=== PATIENT | male | born 1980 | race Two or more races ===

== ENCOUNTER 2023-12-31 13:42 | Emergency (ER) | payer MEDICAID ==
[~2023-12-31] VITALS: Ht 162.6 cm; Wt 52.3 kg
[2023-12-31 13:50] VITALS: BP 117/78; PULSE 60; RESP 14; TEMP 97.5
[2023-12-31 15:05] LABS: BASOPHILS % (AUTO) 0.2 % (0.0-2.0); EOSINOPHILS % (AUTO) 0.1 % (1.0-6.0); HEMATOCRIT 44.4 % (41-53); HEMOGLOBIN 14.5 g/dL (13.5-17.5); LYMPHOCYTES # (AUTO) 0.7 K/uL (1.0-4.8); MEAN CORPUSCULAR HEMOGLOBIN 28.3 pg (26.0-34.0); MEAN CORPUSCULAR HGB CONC 32.8 G/dL (31.0-37.0); MEAN CORPUSCULAR VOLUME 86 fL (80-100); MONOCYTES # (AUTO) 0.6 K/uL (0.1-1.0); MONOCYTES % (AUTO) 3.5 % (2.0-9.0); NEUTROPHILS # (AUTO) 16.3 K/uL (1.8-7.7); PLATELET COUNT (AUTO) 229 K/uL (150-450); RED BLOOD CELL COUNT(AUTO) 5.14 MIL/uL (4.50-5.90); RED CELL DISTRIBUTION WIDTH 12.7 % (11.5-14.5); WHITE BLOOD COUNT (AUTO) 17.7 K/uL (4.5-11.0)
[2023-12-31 15:07] LABS: NEUTROPHILS % (AUTO) 92.2 % (40.0-70.0)
[2023-12-31 15:14] LABS: ANION GAP 12 mmol/L (8-16); CALCIUM, TOTAL 9.5 mg/dL (8.8-10.5); CARBON DIOXIDE 28 mmol/L (22-29); CHLORIDE 96 mmol/L (98-107); CREATININE 1.24 mg/dL (0.60-1.30); GLOMERULAR FILTR. RATE CALC > 60 mL/min (>60); GLUCOSE,RANDOM 123 mg/dL (70-110); POTASSIUM 3.6 mmol/L (3.5-5.1); SODIUM SERUM 136 mmol/L (136-145); UREA NITROGEN, BLOOD 14 mg/dL (7-18)
[2023-12-31 15:15] LABS: LIPASE 24 U/L (16-77)
[2023-12-31 15:25] LABS: PLATELET MORPHOLOGY COMMENT LARGE PLTS PRESENT; RBC MORPHOLOGY COMMENT NORMAL RBC MORPH
[2023-12-31] MEDS: ONDANSETRON HCL 4 MG/2 ML VIAL IVP ONE (15:37)
[2023-12-31] MEDS: KETOROLAC TROMETHAMINE 30 MG/ML VIAL IVP ONE (15:38)
[2023-12-31] MEDS: SODIUM CHLORIDE 0.9% 2,000 ML IV ONE (15:38)
[2023-12-31] MEDS: HYDROmorphone HCL 2 MG/ML SYRINGE IVP ONE (16:15)
[2023-12-31 17:26] LABS: APPEARANCE,URINE CLEAR (CLEAR); BILIRUBIN,URINE NEGATIVE (NEGATIVE); COLOR,URINE LIGHT YELLOW (YELLOW); GLUCOSE, URINE (UA) NEGATIVE (NEGATIVE); KETONES,URINE 40-60 mg/dL (NEGATIVE); LEUKOCYTE ESTERASE ,URINE NEGATIVE (NEGATIVE); NITRATE,URINE NEGATIVE (NEGATIVE); OCCULT BLOOD,URINE NEGATIVE (NEGATIVE); PROTEIN,URINE NEGATIVE (NEGATIVE); SPECIFIC GRAVITIY, URINE 1.014 (1.003-1.030); UROBILINOGEN,URINE <=1.0 mg/dL (<=1.0)
[2023-12-31] MEDS ORDERED: IBUP-1554 PO (18:15)
[2023-12-31] MEDS ORDERED: TAMS0.4C94 PO (18:15)
[2023-12-31] MEDS ORDERED: HYDR-4062 PO (18:15)
[2023-12-31] MEDS: HYDROCODONE/ACETAMINOPHEN 5-325 MG TABLET PO ONE (18:18)
== END 2023-12-31 18:36 | disposition home or self-care (01) ==
LOC: EMS 13:43
DX: N20.9 Urinary calculus, unspecified (principal); N13.9 Obstructive and reflux uropathy, unspecified; Z87.442 Personal history of urinary calculi
CPT/HCPCS: 99285; 74176; 96374; 96375; 96361; 80048; 81003; 83690; 85025; 36415; J1170; J1885

== ENCOUNTER 2024-01-14 15:34 | Emergency (ER) | payer MEDICAID ==
[~2024-01-14] VITALS: Ht 162.6 cm; Wt 52.0 kg
[~2024-01-14 15:34] MED LIST: HYDR-4062 PO; IBUP-1554 PO; TAMS0.4C94 PO
[2024-01-14 15:44] VITALS: BP 133/86; PULSE 63; RESP 16; TEMP 98.4
== END 2024-01-14 17:34 | disposition home or self-care (01) ==
LOC: EMS 15:34
DX: N20.9 Urinary calculus, unspecified (principal)
CPT/HCPCS: 99283; Z7502

== ENCOUNTER 2024-02-02 18:48 | Emergency (ER) | payer MEDICAID ==
[~2024-02-02] VITALS: Ht 162.6 cm; Wt 50.0 kg
[2024-02-02 19:00] VITALS: BP 129/96; PULSE 80; RESP 20; TEMP 98.1
[2024-02-02 19:41] LABS: APPEARANCE,URINE CLEAR (CLEAR); BILIRUBIN,URINE NEGATIVE (NEGATIVE); COLOR,URINE COLORLESS (YELLOW); GLUCOSE, URINE (UA) NEGATIVE (NEGATIVE); KETONES,URINE NEGATIVE (NEGATIVE); LEUKOCYTE ESTERASE ,URINE NEGATIVE (NEGATIVE); NITRATE,URINE NEGATIVE (NEGATIVE); OCCULT BLOOD,URINE NEGATIVE (NEGATIVE); PROTEIN,URINE NEGATIVE (NEGATIVE); SPECIFIC GRAVITIY, URINE 1.009 (1.003-1.030); UROBILINOGEN,URINE <=1.0 mg/dL (<=1.0)
[2024-02-02 19:52] LABS: BACTERIA,URINE None Seen /HPF (None Seen); RBC,URINE None Seen /HPF (0-2); SQUAMOUS EPITHELIAL CELL,UR None Seen /LPF (None Seen); WBC,URINE None Seen /HPF (0-5)
== END 2024-02-02 23:30 | disposition left against medical advice (07) ==
LOC: EMS 18:48
DX: R10.9 Unspecified abdominal pain (principal); Z53.21 Procedure and treatment not carried out due to patient leaving prior to being seen by health care provider
CPT/HCPCS: 81001